=== PATIENT | female | born 1935 | race Caucasian/White ===

== ENCOUNTER 2018-03-28 06:21 | Observation (INO) | payer MEDICARE, OTHER ==
[2018-03-26 15:45] LABS: BASOPHILS # (AUTO) 0.1 (0.0-0.1); BASOPHILS % 0.7 % (0.0-1.0); EOSINOPHILS # (AUTO) 0.1 (0.0-0.4); EOSINOPHILS % 1.1 % (0.0-6.0); HEMATOCRIT 37.3 % (34.2-44.1); HEMOGLOBIN 12.6 g/dL (12.0-16.0); LYMPHOCYTES # (AUTO) 2.8 (1.0-3.2); LYMPHOCYTES % 25.4 % (18.0-39.1); MEAN CORPUSCULAR HEMOGLOBIN 29.7 pg (28-32); MEAN CORPUSCULAR HGB CONC 33.8 g/dL (31-35); MONOCYTES # (AUTO) 1.1 (0.2-0.8); MONOCYTES % 9.7 % (4.4-11.3); NEUTROPHILS # (AUTO) 6.9 (2.1-6.9); NEUTROPHILS % 62.5 % (38.7-80.0); PLATELET COUNT 198 x10e3/uL (140-360); RED BLOOD COUNT 4.24 x10e6/uL (3.6-5.1); RED CELL DISTRIBUTION WIDTH 13.3 % (11.7-14.4)
[2018-03-26 15:50] LABS: INR 1.01; PROTHROMBIN TIME 12.5 seconds (11.9-14.5)
[2018-03-26 15:51] LABS: PARTIAL THROMBOPLASTIN TIME 22.1 seconds (23.8-35.5)
[2018-03-26 15:56] LABS: ANION GAP 11.2 mmol/L (8-16); CALCIUM 9.3 mg/dL (8.4-10.2); CREATININE, SERUM 1.14 mg/dL (0.57-1.11); POTASSIUM 3.2 mmol/L (3.5-5.1)
--- NOTE | 2018-03-26 20:52 | Diagnostic Imaging Report ---
PROCEDURE: Frontal and lateral views of the chest. COMPARISON: None. INDICATIONS: PRE-OP FOR SPINE SURGERY FINDINGS: Lines/tubes: None. Lungs: The lungs are well inflated and clear. There is no evidence of pneumonia or pulmonary edema. Pleura: There is no pleural effusion or pneumothorax. Heart and mediastinum: The heart and the mediastinum are normal. Bones: No acute bony abnormality. IMPRESSION: 1. No acute cardiopulmonary abnormalities. Lester Ku M.D. Dictated by: Lester Ku M.D. on 03/26/2018 at 16:43 Electronically approved by: Lester Ku M.D. on 03/26/2018 at 16:43
[~2018-03-28] VITALS: Ht 154.9 cm; Wt 63.5 kg
[2018-03-28] VITALS (8 sets, daily range): BP systolic 126–134; BP diastolic 58–74
[~2018-03-28 06:21] MED LIST: ASPIR 8181 MG PO; ATENOLOL50 MG PO; BIOTIN800 MCG PO; DIAZEPAM5 MG PO; LIPITOR20 MG PO; MAXZIDE 37.5 M1 EACH PO; MICRO K PO; PANTOPRAZOLE SO40 MG PO; SOMA350 MG PO; TAMOXIFEN CITRA10 MG PO; [UNRECOGNIZED DRUG - OTHER] PO
[2018-03-28] MEDS ORDERED: BACITRACIN 50,000 UNIT VIAL ONE (06:48)
[2018-03-28] MEDS ORDERED: BUPIVACAINE 0.5%/EPI 30 ML SDV INJ ONE (06:48)
[2018-03-28] MEDS ORDERED: THROMBIN FOR SOLN 5,000 UNIT VIAL ONE (06:48)
[2018-03-28] MEDS ORDERED: CEFAZOLIN SOD 2 GM/D5W 50ML 50 ML IV ONE (06:49)
[2018-03-28] MEDS ORDERED: ACETAMINOPHEN 1000 MG/100 ML 100 ML IV ONE (07:05)
[2018-03-28] MEDS ORDERED: LIDOCAINE HCL (LTA) 4 ML SOLN ONE (07:05)
[2018-03-28] MEDS ORDERED: GELATIN SPONGE 12-7MM ONE ×2 (07:31→07:59)
[2018-03-28] MEDS: LACTATED RINGER'S 1,000 ML IV SCH ×2 (08:28→16:48)
[2018-03-28] MEDS ORDERED: ONDANSETRON HCL INJ 2 MG/ML VIAL IV PRN (08:30)
[2018-03-28] MEDS ORDERED: MORPHINE SULFATE 5 MG/ML VIAL IM PRN (08:30)
[2018-03-28] MEDS ORDERED: OXYCODONE/ACETAMINOPHEN 5-325 1 EACH TABLET PO PRN (08:30)
[2018-03-28] MEDS ORDERED: HYDROMORPHONE 2MG/ML INJ IV PRN (08:30)
[2018-03-28] MEDS ORDERED: CARISOPRODOL 350 MG TAB PO PRN (08:30)
[2018-03-28] MEDS ORDERED: PROMETHAZINE HCL (IM) 25 MG/ML VIAL IM PRN (08:30)
[2018-03-28] MEDS ORDERED: CEPACOL SORE THROAT LOZENGES PO PRN (08:30)
[2018-03-28] MEDS ORDERED: MAGNESIUM/ALUMINUM/SIMETHICONE 30 ML UDC PO PRN (08:30)
[2018-03-28] MEDS ORDERED: HYDROMORPHONE 1MG/1ML INJ IV PRN (08:45)
[2018-03-28] MEDS ORDERED: PANTOPRAZOLE SOD 40 MG TABEC PO SCH (09:00)
[2018-03-28] MEDS ORDERED: DIAZEPAM 5 MG TAB PO SCH ×2 (09:00→21:00)
[2018-03-28] MEDS ORDERED: BIOTIN PO SCH (09:00)
[2018-03-28] MEDS ORDERED: TRIAMTERENE/HCTZ 37.5-25 MG TAB PO SCH (09:00)
[2018-03-28] MEDS ORDERED: TAMOXIFEN CITRATE 10 MG TAB PO SCH (09:00)
--- NOTE | 2018-03-28 09:01 | Operative Report ---
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 PROCEDURE: Right L4-L5 laminotomy, medial facetectomy, lateral recess decompression, and microsurgical diskectomy, 39120. ANESTHESIA: General. The patient is an 82-year-old woman who presents with radicular pain in the right leg, and is found to have a central and right paracentral disk herniation and right-sided asymmetric ligamentous hypertrophy producing right L5 lateral recess stenosis. She was taken to the operating room for decompression. PROCEDURE: After induction of general anesthesia, the patient was placed on the operating table in the prone position over a Jona frame. Lumbar region was prepped and draped in a sterile fashion. A preoperative x-ray was obtained. A small paramedian incision was created. Lumbar fascia was opened to the right of the midline, and dissection was carried out to expose the underlying lamina. An x-ray revealed localization at the pedicle of L4. The lamina of L4 was located. The operating microscope was brought in. A high-speed drill equipped with vernon bur was used to drill the inferior half of the lamina of L4 and the medial rim of the L4-L5 facet joint. The ligamentum flavum was resected, and the dural sac and the L5 nerve root were exposed. The nerve root was retracted medially. The herniated disk material came into view. The posterior longitudinal ligament and posterior annulus of the disk were incised with a #11 blade. The subligamentous disk herniation was retrieved and removed. The loose contents of the L4-L5 disk were evacuated with curettes and pituitary rongeurs. Meticulous hemostasis was secured. The retractor was removed. The platysma was closed with 3-0 Vicryl sutures. The skin was closed with 4-0 Monocryl sutures in a subcuticular fashion. Steri-Strips and dry dressing were applied. The patient was awakened, extubated and taken to the postanesthesia care unit in stable condition. No intraoperative complications were encountered. Estimated blood loss was 10 mL. Job#: [id number]
[2018-03-28] MEDS: CEFAZOLIN SOD 1 GM/D5W 50ML 50 ML IV SCH ×2 (13:21→21:41)
[2018-03-28] MEDS ORDERED: PROPOFOL IV EMULSION 10 MG/ML 20 ML VIAL ONE (14:41)
[2018-03-28] MEDS ORDERED: DEXAMETHASONE SOD PHOS INJ 4 MG/ML VIAL ONE (14:41)
[2018-03-28] MEDS ORDERED: ROCURONIUM BROMIDE 10 MG/ML 5ML VIAL ONE (14:41)
[2018-03-28] MEDS ORDERED: ONDANSETRON HCL INJ 2 MG/ML VIAL ONE (14:41)
[2018-03-28] MEDS ORDERED: LIDOCAINE HCL 2% LOCAL INJ 5 ML SDV VIAL INJ ONE (14:41)
[2018-03-28] MEDS ORDERED: GLYCOPYRROLATE INJ 1MG/ 5 ML SYR ONE (14:41)
[2018-03-28] MEDS ORDERED: NEOSTIGMINE 5 MG/5ML SYR ONE (14:41)
[2018-03-28] MEDS ORDERED: DESFLURANE 240 ML BTL INH ONE (14:41)
[2018-03-28] MEDS ORDERED: LIDOCAINE HCL 2% JELLY 5 ML TUBE ONE (14:41)
[2018-03-28] MEDS ORDERED: EPHEDRINE SULFATE INJ 50 MG/10 ML SYR ONE (14:41)
[2018-03-28] MEDS: ACETAMINOPHEN 325 MG TAB PO PRN ×2 (16:34→22:30)
[2018-03-28] MEDS ORDERED: FENTANYL CITRATE/PF 100MCG/2 ML INJ ONE (18:44)
[2018-03-28] MEDS ORDERED: ZOLPIDEM TARTRATE 5 MG TAB PO PRN (21:00)
[2018-03-28] MEDS ORDERED: SODIUM CHLORIDE 0.9% 250ML 250 ML ONE (21:19)
[2018-03-29] MEDS: LACTATED RINGER'S 1,000 ML IV SCH ×2 (01:08→09:28)
[2018-03-29 04:00] VITALS: BP 139/64
[2018-03-29] MEDS: CEFAZOLIN SOD 1 GM/D5W 50ML 50 ML IV SCH (05:29)
[2018-03-29 07:00] VITALS: BP 110/55
[2018-03-29 08:00] VITALS: BP 110/55
== END 2018-03-29 10:42 | disposition home or self-care (01) ==
LOC: OR 06:21 → PACU V 08:29 → IMCU 09:46
PROVIDERS: ADMIT Neurological Surgery; ATTEND Neurological Surgery
DX: M51.16 Intervertebral disc disorders with radiculopathy, lumbar region (principal); I10 Essential (primary) hypertension; E78.5 Hyperlipidemia, unspecified; Z01.810 Encounter for preprocedural cardiovascular examination; Z01.812 Encounter for preprocedural laboratory examination; Z01.818 Encounter for other preprocedural examination; Z79.82 Long term (current) use of aspirin; Z85.3 Personal history of malignant neoplasm of breast; Z90.11 Acquired absence of right breast and nipple; Z88.5 Allergy status to narcotic agent; Z88.0 Allergy status to penicillin
CPT/HCPCS: 36415; 63030; 71046; 72020; 80048; 85025; 85610; 85730; 86850; 86900; 88304; 93005; G0378 ×2; J1100; J2001 ×2; J2405; J3490; J7050; J7120; S0164 ×2; J2270

== ENCOUNTER 2018-04-22 13:00 | Outpatient (RCR) | payer MEDICARE | END 2018-04-23 | LOC: PT 13:00 | PROVIDERS: ATTEND Neurological Surgery | DX: M51.16 Intervertebral disc disorders with radiculopathy, lumbar region (principal); M62.81 Muscle weakness (generalized); R26.2 Difficulty in walking, not elsewhere classified; M53.86 Other specified dorsopathies, lumbar region | CPT/HCPCS: 97110 ×3; 97162; G8984; G8985 ==

== ENCOUNTER 2018-04-24 14:31 | Outpatient (RCR) | payer MEDICARE | END 2018-05-24 | LOC: PT 14:31 | PROVIDERS: ATTEND Neurological Surgery | DX: M51.16 Intervertebral disc disorders with radiculopathy, lumbar region (principal) ==

== ENCOUNTER 2023-03-27 15:56 | Inpatient (IN) | payer MEDICARE ==
[~2023-03-27] VITALS: Ht 154.9 cm; Wt 63.5 kg
[2023-03-27 16:39] LABS: HEMATOCRIT 37.8 % (34.2-44.1); HEMOGLOBIN 12.7 g/dL (12.0-16.0); MEAN CORPUSCULAR HEMOGLOBIN 29.1 pg (28-32); MEAN CORPUSCULAR HGB CONC 33.6 g/dL (31-35); MEAN CORPUSCULAR VOLUME 86.7 fL (81-99); PLATELET COUNT 190 x10e3/uL (140-360); RED BLOOD COUNT 4.36 x10e6/uL (3.6-5.1); RED CELL DISTRIBUTION WIDTH 12.8 % (11.7-14.4)
[2023-03-27 16:40] LABS: BASOPHILS # (AUTO) 0.1 (0.0-0.1); BASOPHILS % 0.4 % (0.0-1.0); EOSINOPHILS % 0.1 % (0.0-6.0); LYMPHOCYTES # (AUTO) 1.3 (1.0-3.2); LYMPHOCYTES % 9.5 % (18.0-39.1); MONOCYTES # (AUTO) 1.1 (0.2-0.8); MONOCYTES % 8.3 % (4.4-11.3); NEUTROPHILS % 81.3 % (38.7-80.0)
[2023-03-27 16:52] LABS: ALBUMIN 3.7 g/dL (3.5-5.0); ALBUMIN/GLOBULIN RATIO 1.1 (0.8-2.0); ANION GAP 19.4 mmol/L (8-16); CALCIUM 9.8 mg/dL (8.4-10.2); CREATININE, SERUM 1.09 mg/dL (0.57-1.11); POTASSIUM 3.4 mmol/L (3.5-5.1)
[2023-03-27] MEDS ORDERED: LACTATED RINGER'S 1,000 ML INJ ONE (17:15)
[2023-03-27 18:00] LABS: CLARITY,URINE SL CLOUDY (CLEAR); COLOR,URINE YELLOW (YELLOW); KETONES,URINE TRACE (NEGATIVE); LEUKOCYTE ESTERASE ,URINE NEGATIVE (NEGATIVE); NITRITE,URINE NEGATIVE (NEGATIVE); PROTEIN,URINE DIPSTICK NEGATIVE (NEGATIVE); URINE UROBILINOGEN 0.2 mg/dL (0.2 - 1)
[2023-03-27 18:15] LABS: AMORPHOUS SEDIMENT,URINE MODERATE (FEW); BACTERIA,URINE MANY /HPF
[2023-03-27 20:25] VITALS: PULSE 84; RESP 18; O2SAT 99
[2023-03-27] MEDS: SODIUM CHLORIDE 0.9% 1000ML 1,000 ML IV SCH (20:37)
[2023-03-27 21:00] VITALS: BP 110/52; PULSE 87; RESP 16; TEMP 97.6; O2SAT 100; O2SAT 99
[2023-03-28] VITALS (8 sets, daily range): BP systolic 100–135; BP diastolic 48–57; PULSE 71–81; RESP 16–19; TEMP 98–98.9; O2SAT 96–100
[2023-03-28] MEDS: SODIUM CHLORIDE 0.9% 1000ML 1,000 ML IV SCH ×4 (03:47→21:19)
[2023-03-28] MEDS ORDERED: DIAZEPAM 5 MG TAB PO PRN (04:30)
[2023-03-28 05:46] LABS: BASOPHILS # (AUTO) 0.1 (0.0-0.1); BASOPHILS % 0.4 % (0.0-1.0); EOSINOPHILS # (AUTO) 0.2 (0.0-0.4); EOSINOPHILS % 1.2 % (0.0-6.0); HEMATOCRIT 32.7 % (34.2-44.1); HEMOGLOBIN 11.1 g/dL (12.0-16.0); LYMPHOCYTES # (AUTO) 2.3 (1.0-3.2); LYMPHOCYTES % 19.1 % (18.0-39.1); MEAN CORPUSCULAR HEMOGLOBIN 29.6 pg (28-32); MEAN CORPUSCULAR HGB CONC 33.9 g/dL (31-35); MEAN CORPUSCULAR VOLUME 87.2 fL (81-99); MONOCYTES # (AUTO) 1.6 (0.2-0.8); MONOCYTES % 12.7 % (4.4-11.3); NEUTROPHILS # (AUTO) 8.1 (2.1-6.9); NEUTROPHILS % 66.1 % (38.7-80.0); PLATELET COUNT 156 x10e3/uL (140-360); RED BLOOD COUNT 3.75 x10e6/uL (3.6-5.1)
[2023-03-28 06:15] LABS: ANION GAP 15.1 mmol/L (8-16); CALCIUM 8.6 mg/dL (8.4-10.2); CREATININE, SERUM 0.87 mg/dL (0.57-1.11); POTASSIUM 3.1 mmol/L (3.5-5.1)
[2023-03-28] MEDS: ATENOLOL 50 MG TAB PO SCH (08:31)
[2023-03-28] MEDS: PANTOPRAZOLE SOD 40 MG TABEC PO SCH (08:32)
[2023-03-28] MEDS: ATORVASTATIN 20 MG TAB PO SCH (08:32)
[2023-03-28] MEDS: TAMOXIFEN CITRATE 10 MG TAB PO SCH (08:35)
[2023-03-28] MEDS ORDERED: POTASSIUM CHLORIDE 20 MEQ TAB CR PO ONE (14:15)
[2023-03-29 00:19] VITALS: BP 103/59; PULSE 56; RESP 15; TEMP 98.1; O2SAT 94
[2023-03-29 05:03] VITALS: BP 124/63; PULSE 58; RESP 15; TEMP 97.7; O2SAT 93
[2023-03-29 06:16] LABS: BASOPHILS # (AUTO) 0.1 (0.0-0.1); BASOPHILS % 0.5 % (0.0-1.0); EOSINOPHILS # (AUTO) 0.3 (0.0-0.4); EOSINOPHILS % 2.6 % (0.0-6.0); HEMATOCRIT 32.5 % (34.2-44.1); HEMOGLOBIN 10.5 g/dL (12.0-16.0); LYMPHOCYTES % 19.6 % (18.0-39.1); MEAN CORPUSCULAR HEMOGLOBIN 28.8 pg (28-32); MEAN CORPUSCULAR HGB CONC 32.3 g/dL (31-35); MEAN CORPUSCULAR VOLUME 89.3 fL (81-99); MONOCYTES # (AUTO) 1.2 (0.2-0.8); MONOCYTES % 11.5 % (4.4-11.3); NEUTROPHILS # (AUTO) 6.5 (2.1-6.9); NEUTROPHILS % 65.3 % (38.7-80.0); PLATELET COUNT 146 x10e3/uL (140-360); RED BLOOD COUNT 3.64 x10e6/uL (3.6-5.1); RED CELL DISTRIBUTION WIDTH 13.2 % (11.7-14.4)
[2023-03-29 06:36] LABS: ALBUMIN 2.7 g/dL (3.5-5.0); ANION GAP 12.7 mmol/L (8-16); CALCIUM 8.5 mg/dL (8.4-10.2); CREATININE, SERUM 0.85 mg/dL (0.57-1.11); POTASSIUM 3.7 mmol/L (3.5-5.1)
[2023-03-29 06:47] LABS: MAGNESIUM 1.1 MG/DL (1.3-2.1)
[2023-03-29] MEDS: MAGNESIUM SULFATE 2GM/50ML 50 ML IV SCH ×2 (08:19→10:29)
[2023-03-29] MEDS: PANTOPRAZOLE SOD 40 MG TABEC PO SCH (08:21)
[2023-03-29] MEDS: TAMOXIFEN CITRATE 10 MG TAB PO SCH (08:21)
[2023-03-29] MEDS: ATENOLOL 50 MG TAB PO SCH (08:21)
[2023-03-29] MEDS: ATORVASTATIN 20 MG TAB PO SCH (08:22)
[2023-03-29 08:28] VITALS: BP 132/43; PULSE 66; RESP 17; TEMP 98.3; O2SAT 99
[2023-03-29 09:00] VITALS: BP 132/43; PULSE 66; RESP 17; TEMP 98.3; O2SAT 99
[2023-03-29] MEDS: SODIUM CHLORIDE 0.9% 1000ML 1,000 ML IV SCH (09:15)
[2023-03-29 11:55] VITALS: BP 138/66; PULSE 70; RESP 16; TEMP 98.3; O2SAT 97
[2023-03-29 15:53] VITALS: BP 115/60; PULSE 60; RESP 16; TEMP 97.9; O2SAT 97
== END 2023-03-29 16:11 | DRG 558 ==
LOC: ER 15:59 → ERHOLD 17:17 → MED/SURG3 20:08 → OBSVTOIN 03-28 08:40 → INTOOBSV 03-28 08:40
PROVIDERS: ADMIT Internal Medicine; ATTEND Internal Medicine
DX: M62.82 Rhabdomyolysis (principal); N39.0 Urinary tract infection, site not specified; I48.92 Unspecified atrial flutter; E87.1 Hypo-osmolality and hyponatremia; I10 Essential (primary) hypertension; W19.XXXA Unspecified fall, initial encounter; K21.9 Gastro-esophageal reflux disease without esophagitis; E86.0 Dehydration; E78.00 Pure hypercholesterolemia, unspecified; F41.9 Anxiety disorder, unspecified; R33.9 Retention of urine, unspecified; D64.9 Anemia, unspecified; E87.6 Hypokalemia; Z90.49 Acquired absence of other specified parts of digestive tract; Z59.6 Low income
CPT/HCPCS: 36415; 70450; 71045; 80048; 80053; 81001; 82550; 83735; 83880; 84484; 85025; 87086; 93005; 94799; 96360; 96361; 99284; G0378; J0696; J3475; J7030

== ENCOUNTER → 2023-10-31 | Outpatient (REF) | payer MEDICARE, OTHER | LOC: RAD 15:32 | PROVIDERS: ATTEND Nurse Practitioner Primary Care | DX: R22.42 Localized swelling, mass and lump, left lower limb (principal) | CPT/HCPCS: 93971 ==